=== PATIENT | male | born 1995 | race Caucasian/White ===

== ENCOUNTER 2020-12-24 08:59 | Emergency (ER) | payer OTHER ==
[~2020-12-24] VITALS: Ht 188 cm; Wt 138.8 kg
--- NOTE | 2020-12-24 09:18 | NUR ---
PA at bedside for Covid test procedure, smash fixer completed, and pt changed into a gown/placed on bedside monitor for SpO2 and BP at this time.
[2020-12-24 09:30] LABS: BASOPHILS % (AUTO) 0 % (0-1); EOSINOPHILS % (AUTO) 0 % (1-7); LYMPHOCYTES % (AUTO) 3 % (22-44); MEAN CORPUSCULAR HEMOGLOBIN 32.7 pg (27.5-34.5); MEAN CORPUSCULAR HGB CONC 34.5 g/dL (33.2-36.2); MEAN PLATELET VOLUME 7.1 fL (7.4-10.4); MONOCYTES % (AUTO) 7 % (2-9); NEUTROPHILS % (AUTO) 89 % (42-75); PLATELET COUNT 269 x10^3/uL (130-400); RED BLOOD COUNT 4.88 x10^6/uL (4.38-5.82); RED CELL DISTRIBUTION WIDTH 13.3 % (9.4-14.8)
[2020-12-24] MEDS ORDERED: SODIUM CHLORIDE 0.9% 1,000ML IVBOLUS ONE (09:30)
[2020-12-24 09:31] LABS: MD NO
[2020-12-24 09:40] LABS: ALBUMIN 4.2 g/dL (3.4-5.0); CALCIUM 9.6 mg/dL (8.5-10.1); CREATININE 0.97 mg/dL (0.7-1.3)
[2020-12-24 10:03] LABS: ANION GAP 6 mmol/L (5-15); CHLORIDE 107 mmol/L (98-107)
[2020-12-24] MEDS ORDERED: KETOROLAC 30 MG/1 ML IVPush ONE (10:30)
[2020-12-24] MEDS ORDERED: CLINDAMYCIN 300 MG CAPSULE ONE (10:30)
[2020-12-24] MEDS ORDERED: KETOROLAC 30 MG/1 ML ONE (10:30)
[2020-12-24] MEDS ORDERED: CLINDAMYCIN 300 MG CAPSULE PO ONE (10:30)
--- NOTE | 2020-12-24 10:40 | NUR ---
Pt reassessed, medicated for left lower tooth area pain secondary to known abcess there. Gumline is dark red and swollen on assessment without drng present. Clindamycin PO given at this time as well with PA stating pt will be d/c'd shortly. Pt aware and calling for ride home.
[2020-12-24 11:09] VITALS: BP 124/78
== END 2020-12-24 11:12 | disposition home or self-care (01) ==
LOC: ED 10:13
DX: K02.9 Dental caries, unspecified (principal); Z20.822 Contact with and (suspected) exposure to COVID-19; R05 Cough; R50.9 Fever, unspecified; R11.10 Vomiting, unspecified; R00.0 Tachycardia, unspecified
CPT/HCPCS: 71045; 80048; 82040; 85025; 87635; 96361; 96374; 99284; J1885; J7030

== ENCOUNTER 2021-01-20 17:57 | Emergency (ER) | payer OTHER ==
[~2021-01-20] VITALS: Ht 188 cm; Wt 139.0 kg
[2021-01-20 18:19] VITALS: BP 161/79
--- NOTE | 2021-01-20 19:25 | NUR ---
PT TO ROOM FROM LOBBY
--- NOTE | 2021-01-20 19:30 | NUR ---
INITIAL PT CONTACT. PT PRESENTS TO ED C/O RIGHT KNEE PAIN S/P GLF TODAY. PT STATES HE TRIPPED IN A HOLE IN THE GROUND, TWISTED HIS KNEE AND "FELT A POP", DECREASED ROM SINCE. PT UPRIGHT ON IVY NUNEZ, JOSE. PT DENIES ANY NEEDS AT THIS TIME. CALL LIGHT AND PERSONAL BELONGINGS WITHIN REACH. FRIEND AT BEDSIDE.
[2021-01-20] MEDS ORDERED: KETOROLAC 30 MG/1 ML ONE (19:40)
[2021-01-20] MEDS ORDERED: KETOROLAC 30 MG/1 ML IM ONE (20:00)
--- NOTE | 2021-01-20 20:09 | NUR ---
PT SITTING UPRIGHT ON IVY NUNEZ VSS. PT DENIES ANY NEEDS AT THIS TIME
--- NOTE | 2021-01-20 20:40 | NUR ---
Patient given discharge instructions and they have confirmed that they understand the instructions. Patient ambulatory with crutch walking. To d/c desk via wheelchair.
== END 2021-01-20 20:42 | disposition home or self-care (01) ==
LOC: ED 20:08
DX: S83.91XA Sprain of unspecified site of right knee, initial encounter (principal); X50.0XXA Overexertion from strenuous movement or load, initial encounter; Y93.89 Activity, other specified; Y92.009 Unspecified place in unspecified non-institutional (private) residence as the place of occurrence of the external cause; Y99.8 Other external cause status
CPT/HCPCS: 29505; 73564; 96372; 99283; J1885